=== PATIENT | male | born 1960 | race Caucasian/White ===

== ENCOUNTER 2020-03-23 16:20 | Emergency (ER) | payer BC ==
[~2020-03-23] VITALS: Ht 193 cm; Wt 162.4 kg
[2020-03-23 16:26] VITALS: BP 147/96
--- NOTE | 2020-03-23 17:13 | NUR ---
Patient discharged with v/s stable BY JASON SILVESTRE. Written and verbal after care instructions given and explained. Patient alert, oriented and verbalized understanding of instructions. Ambulatory with steady gait. All questions addressed prior to discharge. ID band removed. Patient advised to follow up with PMD. Rx of OFLOXACIN given. Patient educated on indication of medication including possible reaction and side effects. Opportunity to ask questions provided and answered. NO NURSING CARE PROVIDED IN OUR ER.
== END 2020-03-23 17:13 | disposition home or self-care (01) ==
LOC: MED 16:20
DX: H92.01 Otalgia, right ear (principal)
CPT/HCPCS: 99283